=== PATIENT | female | born 1990 | race Caucasian/White ===

== ENCOUNTER 2019-08-31 20:48 | Emergency (ER) | payer OTHER ==
[~2019-08-31] VITALS: Ht 162.6 cm; Wt 56.5 kg
[2019-09-01 00:29] VITALS: BP 107/63
== END 2019-09-01 00:40 | disposition home or self-care (01) ==
LOC: ER 20:48
DX: B34.9 Viral infection, unspecified (principal); Z87.01 Personal history of pneumonia (recurrent)
CPT/HCPCS: 99282